=== PATIENT | female | born 1960 | race Caucasian/White ===

== ENCOUNTER 2021-01-29 17:15 | Emergency (ER) | payer OTHER, SELFPAY ==
--- NOTE | ~2021-01-29 | XR_ITS ---
EXAMINATION: XR chest 2V 01/29/2021 17:47 INDICATION: Midsternal chest pain PROCEDURE: 2 view chest COMPARISON: No prior studies for comparison. FINDINGS: The lungs are clear. The cardiomediastinal silhouette is within normal limits. There are no pleural effusions. There is no pneumothorax suspected. IMPRESSION: 1: NO ACUTE CARDIOPULMONARY DISEASE. Reviewed, dictated and finalized at location A. FRAME [employer]ENDER
[2021-01-29 17:21] VITALS: BP 156/83; PULSE 64; RESP 16; TEMP 36.6; O2SAT 100
--- NOTE | 2021-01-29 17:24 | ECG_ITS ---
Measurements Intervals [place] Rate: 67 P: 61 WV: 155 QRS: 63 QRSD: 76 T: 54 QT: 386 QTc: 410 Interpretive Statements SINUS RHYTHM NORMAL ECG Electronically Signed On 01-29-2021 20:06:06 [employer] by Costa Fernandes D.O.
[2021-01-29 17:53] LABS: Alanine Aminotransferase 233 U/L (4-35); Albumin Level 4.5 g/dL (3.5-5.1); Alkaline Phosphatase 63 U/L (38-126); Anion Gap 5 mmol/L (8-16); Aspartate Amino Transferase 131 U/L (14-36); Bilirubin,Total 0.3 mg/dL (0.2-1.3); Blood Urea Nitrogen 15 mg/dL (7-17); Calcium 9.3 mg/dL (8.4-10.2); Carbon Dioxide 27 mmol/L (22-30); Chloride 104 mmol/L (98-107); Estimated CRCL calculation 41 ml/min; Estimated Glomerular Filt Rate 50; Glucose 106 mg/dL (65-110); Lipase 179 U/L (23-300); Sodium 136 mmol/L (137-145)
[2021-01-29 17:59] LABS: Prothrombin Time 12.6 Seconds (11.1-14.7)
[2021-01-29 18:04] LABS: Partial Thromboplastin Time 27.6 SECONDS (22.3-36.8)
[2021-01-29 18:05] LABS: Troponin I < 0.012 ng/mL (0.000-0.034)
[2021-01-29 18:34] LABS: Basophils Absolute Auto 0.1 K/mm3 (0.0-0.1); Basophils Percent Auto 1.5 % (0.2-1.2); Eosinophils Absolute Auto 0.2 K/mm3 (0-0.3); Eosinophils Percent Auto 2.7 % (0-4.4); Hematocrit 38.1 % (37.0-47.0); Immature Granulocyte Absolute 0.02 K/mm3 (0.00-0.031); Immature Granulocyte Percent A 0.3 % (0-0.5); Lymphocytes Absolute Auto 2.05 K/mm3 (0.9-3.2); Lymphocytes Percent Auto 27.7 % (18.3-44.2); Mean Corpuscular HGB Conc 31.5 g/dl (32-36); Mean Corpuscular Hemoglobin 26.5 pg (26-34); Mean Corpuscular Volume 84.3 fl (80-100); Monocytes Absolute Auto 0.7 K/mm3 (0.1-0.6); Monocytes Percent Auto 9.2 % (2.6-8.5); Neutrophils Absolute Auto 4.3 K/mm3 (1.3-6.7); Neutrophils Percent Auto 58.6 % (45.5-73.1); Platelet Count Result 254 k/mm3 (150-375); Red Blood Count 4.52 M/mm3 (4.2-5.4); Red Cell Distribution Width 15.4 % (11.5-14.5); White Blood Count 7.4 K/mm3 (4.5-10.0)
--- NOTE | 2021-01-29 20:17 | PC.NURSE ---
States My ekg was fine and I can not get anyone to come to the hospital so I'm going to leave. Advised to stay for provider evaluation. Walked out without being seen.
== END 2021-01-30 00:53 | disposition left against medical advice (07) ==
LOC: ANHED 20:16
PROVIDERS: Emergency Provider Family Medicine; PCP Internal Medicine Geriatric Medicine
DX: I49.9 Cardiac arrhythmia, unspecified (principal); R00.2 Palpitations; Z53.21 Procedure and treatment not carried out due to patient leaving prior to being seen by health care provider
CPT/HCPCS: 36415; 71046; 80053; 83690; 84484; 85025; 85610; 85730; 93005; 99199